=== PATIENT | female | born 1975 | race Caucasian/White ===

== ENCOUNTER 2023-05-12 12:42 | Outpatient (CLI) | payer BC, SELFPAY ==
--- NOTE | 2023-05-12 12:47 | W.ANESCHARGE ---
Anesthesia Charges Start Date/Time Anesthesia Start Date: 05/12/23 Anesthesia Start Time: 13:50 Stop Date/Time Anesthesia Stop Date: 05/12/23 Anesthesia Stop Time: 14:18
--- NOTE | 2023-05-12 14:21 | W.ANESCHARGE ---
Anesthesia Charges Start Date/Time Anesthesia Start Date: 05/12/23 Anesthesia Start Time: 13:50 Stop Date/Time Anesthesia Stop Date: 05/12/23 Anesthesia Stop Time: 14:18
== END 2023-05-12 12:43 | disposition home or self-care (01) ==
LOC: OP CLINIC 12:43
PROVIDERS: PCP Family Medicine; Visit Provider Internal Medicine Gastroenterology
DX: Z12.11 Encounter for screening for malignant neoplasm of colon (principal)
CPT/HCPCS: 45378; 811; 812; J2405; J2704